=== PATIENT | female | born 1955 | race Caucasian/White ===

== ENCOUNTER → 2017-12-05 | Outpatient (CLI) | payer OTHER ==
[~2017-12-05] MED LIST: ATENOLOL25 MG; GOOD SENSE ASPI81 M3; LIPI10; ZESTRIL5 MG
[2017-12-05 07:38] LABS: BASOPHIL % 1.1 % (0-2); PLATELET COUNT 349 x10^3mcL (130-400); RED CELL DISTRIBUTION WIDTH 15.2 % (11.5-14.5)
[2017-12-05 07:52] LABS: ALKALINE PHOSPHATASE 82 U/L (46-116); ALT/SGPT 19 U/L (14-59); AST/SGOT 12 U/L (15-37); BILIRUBIN TOTAL 0.23 mg/dL (0.20-1.00); CALCIUM 8.3 mg/dL (8.5-10.1); CARBON DIOXIDE 23.9 mmol/L (21-32); CHLORIDE SERUM 107 mmol/L (98-107); CHOLESTEROL 160 mg/dL (<200); CREATININE SERUM 0.7 mg/dL (0.6-1.0); GFR1 > 60 mL/min; GLUCOSE SERUM 103 mg/dL (74-106); POTASSIUM SERUM 4.3 mmol/L (3.5-5.1); SODIUM SERUM 141 mmol/L (136-145); TOTAL PROTEIN, SERUM 7.2 g/dL (6.4-8.2)
[2017-12-05 07:53] LABS: ALBUMIN 3.3 g/dL (3.4-5.0); CHOLESTEROL/HDL RATIO 6.7; HDL CHOLESTEROL 24 mg/dL (40-60); TRIGLYCERIDES 202 mg/dL (<150)
[2017-12-05 08:01] LABS: FREE T4 0.78 ng/dL (0.76-1.46); FREE THYROXINE INDEX 1.6 ug/dL (1.4-4.5); T4(THYROXINE) 4.9 ug/dL (4.7-13.3)
[2017-12-05 09:03] LABS: T3 TOTAL 0.98 ng/mL
== END | disposition home or self-care (01) ==
LOC: LB 07:13
DX: I10 Essential (primary) hypertension (principal); E78.5 Hyperlipidemia, unspecified; R07.9 Chest pain, unspecified
CPT/HCPCS: 84439

== ENCOUNTER 2018-03-04 08:00 | Emergency (ER) | payer OTHER ==
[~2018-03-04] VITALS: Ht 165.1 cm; Wt 84.4 kg
[2018-03-04 08:12] VITALS: Ht 165.1 cm; Wt 84.4 kg
[2018-03-04 11:19] VITALS: BP 121/76
== END 2018-03-04 11:19 | disposition home or self-care (01) ==
LOC: ED 08:00
DX: C34.90 Malignant neoplasm of unspecified part of unspecified bronchus or lung (principal); J18.9 Pneumonia, unspecified organism; I10 Essential (primary) hypertension; E78.00 Pure hypercholesterolemia, unspecified; Z87.891 Personal history of nicotine dependence
CPT/HCPCS: 99406

== ENCOUNTER → 2019-03-15 | Outpatient (CLI) | payer OTHER ==
[2019-03-15 09:30] LABS: ALBUMIN 3.5 g/dL (3.4-5.0); ALKALINE PHOSPHATASE 86 U/L (46-116); ALT/SGPT 21 U/L (14-59); AST/SGOT 6 U/L (15-37); CALCIUM 9.2 mg/dL (8.5-10.1); CHLORIDE SERUM 107 mmol/L (98-107); CHOLESTEROL 144 mg/dL (<200); CREATININE SERUM 0.8 mg/dL (0.6-1.0); GFR1 > 60 mL/min; GLUCOSE SERUM 110 mg/dL (74-106); POTASSIUM SERUM 4.6 mmol/L (3.5-5.1); SODIUM SERUM 143 mmol/L (136-145); TOTAL PROTEIN, SERUM 7.3 g/dL (6.4-8.2); TRIGLYCERIDES 119 mg/dL (<150)
[2019-03-15 09:32] LABS: BASOPHIL % 0.5 % (0-2); PLATELET COUNT 317 x10^3mcL (130-400)
[2019-03-15 09:35] LABS: CHOLESTEROL/HDL RATIO 4.8; HDL CHOLESTEROL 30 mg/dL (40-60)
[2019-03-15 09:37] LABS: RED CELL DISTRIBUTION WIDTH 14.8 % (11.5-14.5)
== END | disposition home or self-care (01) ==
LOC: LB 08:47
DX: I10 Essential (primary) hypertension (principal); E78.5 Hyperlipidemia, unspecified

== ENCOUNTER 2019-06-06 07:11 | Day surgery (SDC) | payer OTHER ==
[~2019-06-06] VITALS: Ht 165.1 cm; Wt 86.2 kg
[2019-06-06 07:47] VITALS: BP 121/79
[2019-06-06 11:30] VITALS: BP 119/73
== END 2019-06-06 12:25 | disposition home or self-care (01) ==
LOC: DS 07:11 → OR 08:30 → GI 08:30 → DS 12:25
DX: Z12.11 Encounter for screening for malignant neoplasm of colon (principal); K22.8 Other specified diseases of esophagus; K29.60 Other gastritis without bleeding; K57.30 Diverticulosis of large intestine without perforation or abscess without bleeding; K21.9 Gastro-esophageal reflux disease without esophagitis; I10 Essential (primary) hypertension; E78.00 Pure hypercholesterolemia, unspecified; J44.9 Chronic obstructive pulmonary disease, unspecified; F17.210 Nicotine dependence, cigarettes, uncomplicated; Z79.82 Long term (current) use of aspirin; Z79.899 Other long term (current) drug therapy; Z90.49 Acquired absence of other specified parts of digestive tract; Z98.890 Other specified postprocedural states
CPT/HCPCS: 43235; 45378; J1200; J1610; J2250; J2310; J3010; J3490

== ENCOUNTER → 2019-06-18 | Outpatient (CLI) | payer OTHER | END | disposition home or self-care (01) | LOC: LB 09:54 | DX: R13.10 Dysphagia, unspecified (principal) ==

== ENCOUNTER 2019-12-17 03:28 | Inpatient (IN) | payer OTHER ==
[2019-12-17] VITALS (7 sets, daily range): BP systolic 110–170; BP diastolic 59–81; Ht 165.1 cm; Wt 82.6 kg
[~2019-12-17] VITALS: Ht 165.1 cm; Wt 82.6 kg
[2019-12-17 04:24] LABS: BASOPHIL % 0.3 % (0-2); PLATELET COUNT 308 x10^3mcL (130-400)
[2019-12-17 04:25] LABS: RED CELL DISTRIBUTION WIDTH 15.9 % (11.5-14.5)
[2019-12-17] MEDS ORDERED: ZESTRIL40 MG PO (04:53)
[2019-12-17 05:07] LABS: CALCIUM 9.1 mg/dL (8.5-10.1); CARBON DIOXIDE 24.4 mmol/L (21-32); CHLORIDE SERUM 108 mmol/L (98-107); CREATININE SERUM 0.8 mg/dL (0.6-1.0); GFR1 > 60 mL/min; GLUCOSE SERUM 143 mg/dL (74-106); SODIUM SERUM 143 mmol/L (136-145)
[2019-12-17 05:11] LABS: ALBUMIN 3.6 g/dL (3.4-5.0); ALKALINE PHOSPHATASE 90 U/L (46-116); ALT/SGPT 21 U/L (14-59); AST/SGOT 15 U/L (15-37); BILIRUBIN TOTAL 0.39 mg/dL (0.20-1.00); TOTAL PROTEIN, SERUM 7.5 g/dL (6.4-8.2)
[2019-12-17] MEDS ORDERED: METFORMIN500 M1 PO (06:47)
[2019-12-17] MEDS ORDERED: LISINOPRIL40 MG PO (06:48)
[2019-12-17 07:10] LABS: CHOLESTEROL/HDL RATIO 4.9
[2019-12-17 07:16] LABS: FREE T4 0.89 ng/dL (0.76-1.46); T4(THYROXINE) 5.9 ug/dL (4.7-13.3)
[2019-12-17 07:55] LABS: T3 TOTAL 1.16 ng/mL
[2019-12-17 19:09] LABS: microscopic required? NO
[2019-12-17 19:13] LABS: UA SPECIFIC GRAVITY 1.025 (1.005-1.035); urine erythrocyte NEGATIVE (NEGATIVE)
[2019-12-17 19:29] LABS: AMPHETAMINE QUAL UR NONE DETECTED (See below)
[2019-12-18] VITALS (7 sets, daily range): BP systolic 131–150; BP diastolic 67–83
[2019-12-19 05:58] VITALS: BP 113/69
[2019-12-19 06:23] LABS: BASOPHIL % 0.1 % (0-2); PLATELET COUNT 285 x10^3mcL (130-400)
[2019-12-19 06:26] LABS: CALCIUM 8.7 mg/dL (8.5-10.1); CARBON DIOXIDE 23.6 mmol/L (21-32); CHLORIDE SERUM 107 mmol/L (98-107); CREATININE SERUM 0.6 mg/dL (0.6-1.0); GFR1 > 60 mL/min; GLUCOSE SERUM 97 mg/dL (74-106); MAGNESIUM 1.7 mg/dL (1.8-2.4); PHOSPHOROUS 3.8 mg/dL (2.5-4.9); POTASSIUM SERUM 3.5 mmol/L (3.5-5.1); SODIUM SERUM 142 mmol/L (136-145)
[2019-12-19 06:57] LABS: RED CELL DISTRIBUTION WIDTH 15.8 % (11.5-14.5)
[2019-12-19 09:07] VITALS: BP 115/68
[2019-12-19 11:39] VITALS: BP 108/67
[2019-12-19 16:33] VITALS: BP 108/67
[2019-12-19] MEDS ORDERED: BRILINTA90 M1 PO (16:36)
[2019-12-19] MEDS ORDERED: CARVEDILOL ER40 MG PO (16:38)
[2019-12-19 16:59] VITALS: BP 108/67
== END 2019-12-19 17:34 | disposition home or self-care (01) | DRG 247 ==
LOC: ED 03:28 → DU 05:23 → MU 12-19 15:50
PROVIDERS: Emergency Medicine; Internal Medicine Geriatric Medicine; ADMIT Family Medicine
PROC: 4A033BC Measurement of Arterial Pressure, Coronary, Percutaneous Approach (ICD-10-PCS; 2019-12-18)
PROC: 4A023N7 Measurement of Cardiac Sampling and Pressure, Left Heart, Percutaneous Approach (ICD-10-PCS; 2019-12-18)
PROC: B2111ZZ Fluoroscopy of Multiple Coronary Arteries using Low Osmolar Contrast (ICD-10-PCS; 2019-12-18)
PROC: B2151ZZ Fluoroscopy of Left Heart using Low Osmolar Contrast (ICD-10-PCS; 2019-12-18)
PROC: 027035Z Dilation of Coronary Artery, One Artery with Two Drug-eluting Intraluminal Devices, Percutaneous Approach (ICD-10-PCS; principal; 2019-12-18 16:00)
DX: I21.4 Non-ST elevation (NSTEMI) myocardial infarction (principal); I10 Essential (primary) hypertension; E78.5 Hyperlipidemia, unspecified; R73.03 Prediabetes; I25.5 Ischemic cardiomyopathy; E78.00 Pure hypercholesterolemia, unspecified; F17.210 Nicotine dependence, cigarettes, uncomplicated; I25.10 Atherosclerotic heart disease of native coronary artery without angina pectoris; Z79.82 Long term (current) use of aspirin; Z68.30 Body mass index [BMI] 30.0-30.9, adult; Z79.84 Long term (current) use of oral hypoglycemic drugs; Z79.899 Other long term (current) drug therapy; Z82.49 Family history of ischemic heart disease and other diseases of the circulatory system
CPT/HCPCS: CLHCL; 76937; 83880; 84439; 93571; 99406; C1760; C1769; C1876; C1894; G0378; J0360; J1644; J2001; J2250; J2270; J2405; J3010; J7030; J7050; Q0092; Q9967

== ENCOUNTER → 2020-03-06 | Outpatient (CLI) | payer OTHER ==
[~2020-03-06] MED LIST changes: +BRILINTA90 M1 PO; +CARVEDILOL ER40 MG PO; +LISINOPRIL40 MG PO; +METFORMIN500 M1 PO; +ZESTRIL40 MG PO
[2020-03-06 15:17] LABS: ALBUMIN 3.6 g/dL (3.4-5.0); ALKALINE PHOSPHATASE 79 U/L (46-116); ALT/SGPT 19 U/L (14-59); AST/SGOT 13 U/L (15-37); BILIRUBIN TOTAL 0.5 mg/dL (0.20-1.00); CALCIUM 9.2 mg/dL (8.5-10.1); CHLORIDE SERUM 105 mmol/L (98-107); CREATININE SERUM 0.8 mg/dL (0.6-1.0); GFR1 > 60 mL/min; GLUCOSE SERUM 91 mg/dL (74-106); POTASSIUM SERUM 4.5 mmol/L (3.5-5.1); SODIUM SERUM 141 mmol/L (136-145); TOTAL PROTEIN, SERUM 7.3 g/dL (6.4-8.2); TRIGLYCERIDES 119 mg/dL (<150)
[2020-03-06 15:20] LABS: CHOLESTEROL 134 mg/dL (<200); CHOLESTEROL/HDL RATIO 4.8; HDL CHOLESTEROL 28 mg/dL (40-60)
== END | disposition home or self-care (01) ==
LOC: LB 14:42
DX: E78.5 Hyperlipidemia, unspecified (principal); I10 Essential (primary) hypertension; R73.02 Impaired glucose tolerance (oral)

== ENCOUNTER → 2020-04-09 | Outpatient (CLI) | payer OTHER ==
[2020-04-09 09:11] LABS: ALBUMIN 3.6 g/dL (3.4-5.0); ALKALINE PHOSPHATASE 86 U/L (46-116); ALT/SGPT 19 U/L (14-59); AST/SGOT 11 U/L (15-37); BILIRUBIN TOTAL 0.3 mg/dL (0.20-1.00); CALCIUM 8.8 mg/dL (8.5-10.1); CARBON DIOXIDE 24.7 mmol/L (21-32); CHLORIDE SERUM 103 mmol/L (98-107); CREATININE SERUM 0.9 mg/dL (0.6-1.0); GFR1 > 60 mL/min; GLUCOSE SERUM 104 mg/dL (74-106); POTASSIUM SERUM 4.8 mmol/L (3.5-5.1); SODIUM SERUM 138 mmol/L (136-145); TOTAL PROTEIN, SERUM 7.4 g/dL (6.4-8.2)
== END | disposition home or self-care (01) ==
LOC: LB 07:52
DX: I10 Essential (primary) hypertension (principal)

== ENCOUNTER → 2020-06-16 | Outpatient (CLI) | payer OTHER ==
[2020-06-16 10:46] LABS: ALBUMIN 3.6 g/dL (3.4-5.0); ALKALINE PHOSPHATASE 89 U/L (46-116); ALT/SGPT 18 U/L (14-59); AST/SGOT 11 U/L (15-37); BILIRUBIN TOTAL 0.34 mg/dL (0.20-1.00); CALCIUM 9.1 mg/dL (8.5-10.1); CARBON DIOXIDE 25.5 mmol/L (21-32); CHLORIDE SERUM 104 mmol/L (98-107); CREATININE SERUM 0.9 mg/dL (0.6-1.0); GFR1 > 60 mL/min; GLUCOSE SERUM 94 mg/dL (74-106); POTASSIUM SERUM 4.6 mmol/L (3.5-5.1); SODIUM SERUM 138 mmol/L (136-145); TOTAL PROTEIN, SERUM 7.6 g/dL (6.4-8.2); TRIGLYCERIDES 110 mg/dL (<150)
[2020-06-16 10:51] LABS: CHOLESTEROL 129 mg/dL (<200); CHOLESTEROL/HDL RATIO 4.2; HDL CHOLESTEROL 31 mg/dL (40-60)
== END | disposition home or self-care (01) ==
LOC: LB 10:09
DX: I10 Essential (primary) hypertension (principal); R73.02 Impaired glucose tolerance (oral); E78.5 Hyperlipidemia, unspecified

== ENCOUNTER → 2020-10-12 | Outpatient (CLI) | payer OTHER | LOC: RD 10:44 | PROVIDERS: ATTEND Internal Medicine | DX: M25.511 Pain in right shoulder (principal); M79.601 Pain in right arm ==

== ENCOUNTER → 2020-12-06 | Outpatient (CLI) | payer OTHER | END | disposition home or self-care (01) | LOC: MI 11:38 | PROC: BR30ZZZ Magnetic Resonance Imaging (MRI) of Cervical Spine (ICD-10-PCS; principal; 2020-12-06) | DX: M47.22 Other spondylosis with radiculopathy, cervical region (principal) ==

== ENCOUNTER → 2020-12-15 | Outpatient (CLI) | payer OTHER ==
[2020-12-15 07:53] LABS: BASOPHIL % 0.8 % (0.2-1.3); PLATELET COUNT 343 x10^3mcL (179-408)
[2020-12-15 07:54] LABS: RED CELL DISTRIBUTION WIDTH 14.6 % (12.3-17.7)
[2020-12-15 08:25] LABS: ALBUMIN 3.4 g/dL (3.4-5.0); ALKALINE PHOSPHATASE 91 U/L (46-116); ALT/SGPT 17 U/L (14-59); AST/SGOT 7 U/L (15-37); BILIRUBIN TOTAL 0.36 mg/dL (0.20-1.00); CALCIUM 9.2 mg/dL (8.5-10.1); CARBON DIOXIDE 27.2 mmol/L (21-32); CHLORIDE SERUM 105 mmol/L (98-107); CHOLESTEROL 137 mg/dL (<200); CREATININE SERUM 0.9 mg/dL (0.6-1.0); GFR1 > 60 mL/min; GLUCOSE SERUM 102 mg/dL (74-106); POTASSIUM SERUM 4.3 mmol/L (3.5-5.1); SODIUM SERUM 140 mmol/L (136-145); TOTAL PROTEIN, SERUM 7.3 g/dL (6.4-8.2); TRIGLYCERIDES 115 mg/dL (<150)
[2020-12-15 08:29] LABS: CHOLESTEROL/HDL RATIO 4.4; HDL CHOLESTEROL 31 mg/dL (40-60)
[2020-12-16 18:28] LABS: microalbumin:creatinine ratio 4 (0-29)
== END | disposition home or self-care (01) ==
LOC: LB 07:19
DX: E11.9 Type 2 diabetes mellitus without complications (principal); E78.5 Hyperlipidemia, unspecified; Z95.820 Peripheral vascular angioplasty status with implants and grafts

== ENCOUNTER → 2020-12-30 | Outpatient (CLI) | payer OTHER | END | disposition home or self-care (01) | LOC: RD 10:04 | DX: M25.511 Pain in right shoulder (principal) ==